=== PATIENT | female | born 1970 | race Caucasian/White ===

== ENCOUNTER 2020-04-08 17:38 | Inpatient (IN) | payer MEDICAID ==
[~2020-04-08] VITALS: Ht 162.6 cm; Wt 104.4 kg
--- NOTE | 2020-04-08 18:30 | NUR ---
Received report form OLIVIA Machuca at [place]. Took initial vitals and endorse care over to oncoming nurse Silvia.
[2020-04-08 19:10] VITALS: BP 149/87
--- NOTE | 2020-04-08 19:30 | NUR ---
Admitted a 49 years old female directly from [facility], for PUI and PNM. Patient AAOx4. Lithuanian speaking only. Denies any pain. On High flow O2 AT 40l, 80% FiO2, O2 sat at 100% art this time. No coughing noted. NSR on tele at 97/min. IV site on left wrist intact and patent. COVID isolation initiated. Routine admission care done. Plan of care initiated. Safety measure initiated and call castellano within reached. Continue to monitor.
[2020-04-08 20:00] VITALS: BP 156/88
[2020-04-08] MEDS ORDERED: HYDR-4384 PO (20:26)
[2020-04-08] MEDS ORDERED: MAG-83 PO (20:26)
[2020-04-08] MEDS ORDERED: ACET-2154 PO (20:26)
[2020-04-08] MEDS ORDERED: ZOLP5TAB8 PO (20:26)
[2020-04-08] MEDS ORDERED: PANT40TA2 PO (20:26)
[2020-04-08] MEDS ORDERED: DOXY100C2 PO (20:26)
[2020-04-08] MEDS ORDERED: DEXA10VI6 IVP (20:26)
[2020-04-08] MEDS ORDERED: ONDASETRON IVP (20:26)
[2020-04-08] MEDS ORDERED: HEPA50008 SQ (20:26)
[2020-04-08] MEDS ORDERED: MAG HYDROX/AL HYDROX/SIMETH 30 ML LIQUID UDC PO PRN (21:45)
[2020-04-08] MEDS ORDERED: ZOLPIDEM 5 MG TABLET PO PRN (21:45)
[2020-04-08] MEDS ORDERED: ACETAMINOPHEN 325 MG TABLET PO PRN (21:45)
[2020-04-08] MEDS ORDERED: HYDROCODONE/APAP 5-325MG TABLET PO PRN (21:45)
[2020-04-08] MEDS ORDERED: Z GUARD REMEDY PASTE 57 GM TUBE TOP PRN (21:45)
[2020-04-08] MEDS ORDERED: MAGNESIUM HYDROXIDE 30 ML LIQUID UDC PO PRN (21:45)
[2020-04-09 01:10] VITALS: BP 136/79
[2020-04-09 04:00] VITALS: BP 145/82
--- NOTE | 2020-04-09 07:03 | NUR ---
AAOx4. Denies any pain or SOB. On High flow O2 AT 40L, 80% FiO2, O2 sat at 97%. NSR on tele at 86/min. IV site on left wrist remains intact and patent. Needs attended to and met. COVID isolation maintained. Safety measure maintained and call castellano within reached.
--- NOTE | 2020-04-09 07:30 | NUR ---
received pt., A/Ox4, resting in bed. pt on high flow 40L, 80%. bed in low and locked position, fall precautions in place. will continue to monitor.
[2020-04-09 07:46] LABS: BASOPHILS % (AUTO) 0.1 % (0.0-2.0); HEMATOCRIT 29.3 % (31.2-41.9); HEMOGLOBIN 9.5 g/dL (10.9-14.3); LYMPHOCYTES # (AUTO) 0.4 K/uL (20.0-40.0); MEAN CORPUSCULAR HEMOGLOBIN 25.8 uug (24.7-32.8); MEAN CORPUSCULAR HGB CONC 32 g/dL (32.3-35.6); MONOCYTES # (AUTO) 0.5 K/uL (2.0-10.0); MONOCYTES % (AUTO) 6.5 % (0.0-11.0); NEUTROPHILS # (AUTO) 7.1 K/uL (1.8-8.9); NEUTROPHILS % (AUTO) 88.4 % (38.5-71.5); PLATELET COUNT (AUTO) 419 K/uL (179-408); RED BLOOD CELL COUNT(AUTO) 3.66 MIL/uL (3.63-4.92)
[2020-04-09 08:18] LABS: MAGNESIUM 3.1 mg/dL (1.8-2.4); PHOSPHOROUS 7.4 mg/dL (2.5-4.9); POTASSIUM 4.3 mmol/L (3.5-5.1)
[2020-04-09 08:46] LABS: CREATININE 7.5 mg/dL (0.6-1.3)
[2020-04-09] MEDS ORDERED: DOXYCYCLINE HYCLATE 100 MG TABLET PO SCH (09:00)
[2020-04-09] MEDS ORDERED: HEPARIN SODIUM,PORCINE 5,000 UNITS/ML VIAL SQ SCH ×2 (09:00→09:44)
--- NOTE | 2020-04-09 09:36 | NUR ---
critical labs values were reported by Karon from lab, BUN 117, Creatinine 7.5 at approx. 0846. made aware. awaiting orders. will continue to monitor.
[2020-04-09] MEDS: DEXAMETHASONE SOD PHOSPHATE 10 MG INJ IV SCH (09:45)
[2020-04-09] MEDS: PANTOPRAZOLE SODIUM 40 MG TABLET.DR PO SCH (09:45)
[2020-04-09] MEDS ORDERED: IV NS 1000 ML 1,000 ML IV ONE (10:45)
[2020-04-09] MEDS ORDERED: CEFTRIAXONE 1 G in IV DEXTROSE 5% 50 ML IV SCH (11:00)
[2020-04-09 11:58] VITALS: BP 134/86
[2020-04-09] MEDS: AZITHROMYCIN IV 500 MG in IV DEXTROSE 5% 250 ML IV SCH (12:27)
[2020-04-09] MEDS: CEFTRIAXONE 2 G in IV DEXTROSE 5% 100 ML IV SCH (13:19)
[2020-04-09 16:00] VITALS: BP 135/84
--- NOTE | 2020-04-09 19:30 | NUR ---
Received patient lying in bed. AAOx4. Denies any pain or SOB. On High flow O2 AT 40L, 80% FiO2, O2 sat at 97%. VS WNL. NSR on tele at 98/min. IV site on left wrist remains intact and patent. COVID isolation initiated. Safety measure initiated and call castellano within reached. Continue to monitor.
--- NOTE | 2020-04-09 19:36 | NUR ---
pt resting in bed, IV 22g on the left AC. pt on high flow oxygen. medications given as ordered. bed in low and locked position, fall precautions in place. will endorse to oncoming nurse.
[2020-04-09] MEDS: ENOXAPARIN SODIUM 100 MG/ML DISP.SYRIN SQ SCH (21:22)
[2020-04-09 21:44] VITALS: BP 126/83
[2020-04-10 00:21] VITALS: BP 135/76
[2020-04-10 04:24] VITALS: BP 134/74
[2020-04-10 05:24] VITALS: BP 134/74
--- NOTE | 2020-04-10 06:19 | NUR ---
No adverse event noted. Patient denies any SOB or pain. Still on high flow O2. No adverse effect noted from IV ABX. NSR on tele at 74/min. COVID isolation maintained. Needs attended to and met. Safety measure maintained and call castellano within reach.
[2020-04-10 07:27] LABS: HEMATOCRIT 28.1 % (31.2-41.9); HEMOGLOBIN 9.1 g/dL (10.9-14.3); LYMPHOCYTES # (AUTO) 0.4 K/uL (20.0-40.0); LYMPHOCYTES % (AUTO) 4.7 % (20.5-51.5); MEAN CORPUSCULAR HEMOGLOBIN 25.9 uug (24.7-32.8); MEAN CORPUSCULAR HGB CONC 32 g/dL (32.3-35.6); MEAN CORPUSCULAR VOLUME 80.2 fL (75.5-95.3); MONOCYTES # (AUTO) 0.6 K/uL (2.0-10.0); NEUTROPHILS # (AUTO) 7.6 K/uL (1.8-8.9); NEUTROPHILS % (AUTO) 88.3 % (38.5-71.5); PLATELET COUNT (AUTO) 454 K/uL (179-408); RED BLOOD CELL COUNT(AUTO) 3.51 MIL/uL (3.63-4.92); WHITE BLOOD COUNT (AUTO) 8.6 K/uL (3.8-11.8)
[2020-04-10 07:57] LABS: BILIRUBIN,TOTAL 0.2 mg/dL (0.2-1.0); CREATININE 6.7 mg/dL (0.6-1.3); MAGNESIUM 2.9 mg/dL (1.8-2.4); PHOSPHOROUS 7.1 mg/dL (2.5-4.9); POTASSIUM 4.4 mmol/L (3.5-5.1); TOTAL PROTEIN, SERUM 6.9 g/dL (6.4-8.2)
--- NOTE | 2020-04-10 08:00 | NUR ---
Received PT in bed, awake AO X 4. PT is cooperative and pleasant. Makes needs known to staff and interacts with staff when engaged to. SOB noted while moving in bed and going on the commode Nurse encourages PT to rest and practice deep breathing techniques. PT O2 saturation at 95% on high flow NC. PT returned to bed with safety measures provided, call light within reach, bed low and lock. Will continue to monitor.
[2020-04-10] MEDS ORDERED: DEXAMETHASONE SOD PHOSPHATE 10 MG INJ IV SCH (09:00)
[2020-04-10 09:36] LABS: ABG BASE EXCESS -14.5 mmol/L; ABG HCO3 11.5 mmol/L; ABG PCO2 27.6 mmHg (35.0-45.0); ABG PH 7.239 (7.350-7.450); ABG PO2 92.2 mmHg (75.0-100.0); ABG SITE RIGHT RADIAL; COHb 0.3 % (0.5-1.5); MetHb 0.2 % (0.0-1.5); O2Hb 95.6 % (94.0-97.0)
[2020-04-10] MEDS: PANTOPRAZOLE SODIUM 40 MG TABLET.DR PO SCH (10:25)
[2020-04-10] MEDS: DEXAMETHASONE SOD PHOSPHATE 10 MG INJ IV SCH (10:25)
[2020-04-10 11:55] VITALS: BP 124/64
[2020-04-10] MEDS: AZITHROMYCIN IV 500 MG in IV DEXTROSE 5% 250 ML IV SCH (12:28)
[2020-04-10] MEDS: CEFTRIAXONE 2 G in IV DEXTROSE 5% 100 ML IV SCH (13:54)
[2020-04-10 16:00] VITALS: BP 149/69
--- NOTE | 2020-04-10 18:39 | NUR ---
PT in bed, awake AO X 4 with safety measures. PT is in less distress and less SOB noted than previous. Vitals documented. PT still on high flow NC with O2 saturation of 95%. No complain of pain noted at this time. PT finished dinner and is resting in bed. Nurse taught coping skills and breathing techniques to relieve SOB. Safety measures provided, call light within reach, bed low and lock. Will endorse to overnight cashier nurse
--- NOTE | 2020-04-10 20:16 | NUR ---
Received patient in bed with High flow oxygen at 40LPM saturating at 99%.HOB elevated .Denies pain.No s/s of distress noted.Due meds given. Iv on left forearm patent and intact. Continue safety measures .Call light with in reach .will continue to monitor.
[2020-04-10 20:21] VITALS: BP 156/90
[2020-04-10] MEDS: ENOXAPARIN SODIUM 100 MG/ML DISP.SYRIN SQ SCH (22:01)
[2020-04-11 00:24] VITALS: BP 148/83
[2020-04-11 04:21] VITALS: BP 134/80
[2020-04-11 06:25] LABS: *BILIRUBIN,URIN NEGATIVE (NEGATIVE); *BLOOD, URINE 3+ (NEGATIVE); *CLARITY,URINE CLOUDY (CLEAR); *COLOR,URINE Brown (YELLOW); *KETONES,URINE NEGATIVE (NEGATIVE); *UROBILINOGEN,URINE 0.2 E.U./dl (NORMAL); LEUKOCYTE ESTERASE ,URINE NEGATIVE (NEGATIVE); NITRITE, URINE NEGATIVE (NEGATIVE); PH,URINE 5.5 (5.0-8.0); UGLUCOSE NEGATIVE (NEGATIVE)
[2020-04-11 06:54] LABS: BASOPHILS % (AUTO) 0.1 % (0.0-2.0); EOSINOPHILS % (AUTO) 0.2 % (0.0-7.0); HEMATOCRIT 30.3 % (31.2-41.9); HEMOGLOBIN 9.6 g/dL (10.9-14.3); LYMPHOCYTES # (AUTO) 0.4 K/uL (20.0-40.0); LYMPHOCYTES % (AUTO) 4.5 % (20.5-51.5); MEAN CORPUSCULAR HEMOGLOBIN 25.4 uug (24.7-32.8); MEAN CORPUSCULAR HGB CONC 32 g/dL (32.3-35.6); MEAN CORPUSCULAR VOLUME 80.6 fL (75.5-95.3); MONOCYTES # (AUTO) 0.6 K/uL (2.0-10.0); MONOCYTES % (AUTO) 6.2 % (0.0-11.0); NEUTROPHILS # (AUTO) 8.6 K/uL (1.8-8.9); PLATELET COUNT (AUTO) 469 K/uL (179-408); RED BLOOD CELL COUNT(AUTO) 3.76 MIL/uL (3.63-4.92); WHITE BLOOD COUNT (AUTO) 9.7 K/uL (3.8-11.8)
[2020-04-11 07:14] LABS: *CREATININE,URINE 70.4 mg/dL (30-125); *URINE TOTAL PROTEIN RANDOM 131.5 mg/dL (<150/24HR)
[2020-04-11 07:36] LABS: BILIRUBIN,TOTAL 0.3 mg/dL (0.2-1.0); CREATININE 5.9 mg/dL (0.6-1.3); MAGNESIUM 2.6 mg/dL (1.8-2.4); PHOSPHOROUS 6.6 mg/dL (2.5-4.9); POTASSIUM 4.2 mmol/L (3.5-5.1); TOTAL PROTEIN, SERUM 7.2 g/dL (6.4-8.2)
[2020-04-11 08:06] LABS: COMPLEMENT, C3 SERUM 140 mg/dL (82-167); COMPLEMENT, C4 SERUM 15 mg/dL (12-38)
[2020-04-11] MEDS: PANTOPRAZOLE SODIUM 40 MG TABLET.DR PO SCH (08:38)
[2020-04-11] MEDS: DEXAMETHASONE SOD PHOSPHATE 10 MG INJ IV SCH (08:39)
[2020-04-11 09:06] LABS: *ANTI-SCLERODERMA-70 AB <0.2 AI (0.0-0.9); *SJOGREN'S ANTI-SS-A <0.2 AI (0.0-0.9); *SJOGREN'S ANTI-SS-B <0.2 AI (0.0-0.9); *SMITH ANTIBODIES <0.2 AI (0.0-0.9)
[2020-04-11 11:08] VITALS: BP 149/83
[2020-04-11] MEDS: AZITHROMYCIN IV 500 MG in IV DEXTROSE 5% 250 ML IV SCH (12:20)
[2020-04-11] MEDS: CEFTRIAXONE 2 G in IV DEXTROSE 5% 100 ML IV SCH (13:46)
[2020-04-11 14:08] LABS: A/G RATIO 0.6 (0.7-1.7); ALBUMIN 2.5 g/dL (2.9-4.4); ALPHA-1-GLOBULIN 0.4 g/dL (0.0-0.4); ALPHA-2-GLOBULIN 1.2 g/dL (0.4-1.0); GAMMA GLOBULIN 1.4 g/dL (0.4-1.8); M-SPIKE Not Observed g/dL (Not Observed)
[2020-04-11 15:16] VITALS: BP 153/86
[2020-04-11 16:14] LABS: ANTI-DNA(DS) AB, QN 1 IU/mL (0-9)
[2020-04-11 17:19] LABS: BACTERIA,URINE NONE SEEN /HPF (NONE SEEN); RBC,URINE TNTC /HPF (0-3); WBC,URINE NONE SEEN /HPF (0-3)
[2020-04-11] MEDS: ENOXAPARIN SODIUM 100 MG/ML DISP.SYRIN SQ SCH (20:28)
[2020-04-11 20:57] VITALS: BP 155/83
[2020-04-12] MEDS: GUAIFENESIN/DEXTROMETHORPHAN 5 ML UDC PO PRN (03:21)
--- NOTE | 2020-04-12 04:15 | NUR ---
PATIENT COMPLAINS OF COUGHING THROUGHOUT THE NIGHT. GIVEN PRN ANTITUSSIVE. SLEPT INTERMITTENTLY THROUGHOUT THE NIGHT. SAFETY PRECAUTIONS IN PLACE.
[2020-04-12 05:15] VITALS: BP 161/86
--- NOTE | 2020-04-12 07:20 | NUR ---
Patient awake, alert and oriented, able to make needs known. On hi flow oxygen at 40LPM via NC saturating at 99%. Patient has right upper arm midline and L forearm IV access, both patent. Patient has labored breathing. No chest pain or IV site pain noted at this moment. RN instructed patient to use call light when in need of assistance. Patient verbalize understanding. Will continue to monitor.
[2020-04-12] MEDS: PANTOPRAZOLE SODIUM 40 MG TABLET.DR PO SCH (10:23)
[2020-04-12] MEDS: DEXAMETHASONE SOD PHOSPHATE 10 MG INJ IV SCH (10:23)
[2020-04-12 11:06] VITALS: BP 137/74
[2020-04-12] MEDS: AZITHROMYCIN IV 500 MG in IV DEXTROSE 5% 250 ML IV SCH (11:22)
[2020-04-12 11:23] LABS: BASOPHILS % (AUTO) 0.2 % (0.0-2.0); EOSINOPHILS % (AUTO) 0.2 % (0.0-7.0); HEMATOCRIT 27.5 % (31.2-41.9); HEMOGLOBIN 8.4 g/dL (10.9-14.3); LYMPHOCYTES # (AUTO) 0.3 K/uL (20.0-40.0); LYMPHOCYTES % (AUTO) 2.6 % (20.5-51.5); MEAN CORPUSCULAR HEMOGLOBIN 24.8 uug (24.7-32.8); MEAN CORPUSCULAR HGB CONC 31 g/dL (32.3-35.6); MONOCYTES # (AUTO) 0.4 K/uL (2.0-10.0); MONOCYTES % (AUTO) 3.4 % (0.0-11.0); NEUTROPHILS # (AUTO) 10.7 K/uL (1.8-8.9); NEUTROPHILS % (AUTO) 93.6 % (38.5-71.5); PLATELET COUNT (AUTO) 444 K/uL (179-408); WHITE BLOOD COUNT (AUTO) 11.4 K/uL (3.8-11.8)
[2020-04-12 11:33] LABS: CREATININE 4.7 mg/dL (0.6-1.3); POTASSIUM 4.1 mmol/L (3.5-5.1)
[2020-04-12] MEDS: CEFTRIAXONE 2 G in IV DEXTROSE 5% 100 ML IV SCH (12:56)
[2020-04-12 15:23] VITALS: BP 146/87
--- NOTE | 2020-04-12 19:00 | NUR ---
Patient lying in bed, both IV access patent. Still on hi flow oxygen at 40L via nasal cannula saturating 99%. No chest pain or IV site pain reported. Daughter called twice today, asking for some updates. All needs attended. Patient was seen by Dr. Villanueva today, saying she will order for an xray. Will endorse to night time nanny nurse.
[2020-04-12] MEDS: ENOXAPARIN SODIUM 100 MG/ML DISP.SYRIN SQ SCH (21:14)
[2020-04-12 21:25] VITALS: BP 146/78
--- NOTE | 2020-04-12 23:30 | NUR ---
Received pt resting in bed. AAO x4. On high flow 40L O2, labored breathing on exertion. No acute distress noted. Denies pain/ discomfort. Due med given as ordered. Safety measures maintained. Call light and personal items within reach. Will continue to monitor.
[2020-04-13 01:14] VITALS: BP 162/89
--- NOTE | 2020-04-13 01:38 | NUR ---
Pt's BP elevated 162/ 89, HR 99. Notified Dr. Tracy with order for Vasotec 2.5 mg IV Q6H PRN for SBP> 150. Will carry out order. Continue to monitor.
[2020-04-13] MEDS: ENALAPRILAT DIHYDRATE 1.25 MG/1 ML VIAL IV PRN (01:54)
[2020-04-13 06:46] VITALS: BP 157/89
[2020-04-13 08:19] LABS: BASOPHILS % (AUTO) 0.2 % (0.0-2.0); EOSINOPHILS % (AUTO) 0.2 % (0.0-7.0); HEMATOCRIT 27.4 % (31.2-41.9); HEMOGLOBIN 8.6 g/dL (10.9-14.3); LYMPHOCYTES # (AUTO) 0.5 K/uL (20.0-40.0); LYMPHOCYTES % (AUTO) 3.8 % (20.5-51.5); MEAN CORPUSCULAR HEMOGLOBIN 25.3 uug (24.7-32.8); MEAN CORPUSCULAR HGB CONC 31 g/dL (32.3-35.6); MEAN CORPUSCULAR VOLUME 80.6 fL (75.5-95.3); MONOCYTES # (AUTO) 0.3 K/uL (2.0-10.0); MONOCYTES % (AUTO) 2.8 % (0.0-11.0); PLATELET COUNT (AUTO) 459 K/uL (179-408); WHITE BLOOD COUNT (AUTO) 11.8 K/uL (3.8-11.8)
[2020-04-13] MEDS: DEXAMETHASONE SOD PHOSPHATE 10 MG INJ IV SCH (08:51)
[2020-04-13] MEDS: PANTOPRAZOLE SODIUM 40 MG TABLET.DR PO SCH (08:51)
[2020-04-13 09:51] LABS: ABG BASE EXCESS -13.4 mmol/L; ABG PCO2 26.5 mmHg (35.0-45.0); ABG PH 7.275 (7.350-7.450); ABG SITE LEFT BRACHIAL; ABG TOTAL HEMOGLOBIN 9.1 G/dL (12.0-16.0); COHb 0.6 % (0.5-1.5); MetHb 0.3 % (0.0-1.5)
--- NOTE | 2020-04-13 10:00 | NUR ---
Notified Dr calero about abg result drawn today. No new orders received.
[2020-04-13] MEDS ORDERED: ALBUTEROL SULFATE 8 GM HFA.AER.AD IH PRN (10:30)
[2020-04-13 10:54] LABS: CREATININE 4.7 mg/dL (0.6-1.3); MAGNESIUM 2.6 mg/dL (1.8-2.4); PHOSPHOROUS 5.7 mg/dL (2.5-4.9); POTASSIUM 3.9 mmol/L (3.5-5.1)
--- NOTE | 2020-04-13 11:00 | NUR ---
Instructed pt to conserve her energy and remain bed rest secondary to pt desaturated from hs when getting oob to the commode. Pt agreeable with plan of care.
[2020-04-13] MEDS: CEFTRIAXONE 2 G in IV DEXTROSE 5% 100 ML IV SCH (11:51)
[2020-04-13 12:00] VITALS: BP 144/84
[2020-04-13] MEDS: GUAIFENESIN/DEXTROMETHORPHAN 5 ML UDC PO PRN (12:15)
[2020-04-13 16:00] VITALS: BP 126/75
[2020-04-13 20:00] VITALS: BP 141/83
--- NOTE | 2020-04-13 21:40 | NUR ---
Patient on highflow 40LPM saturating at 97%.ALert and able to make needs known.Bengali speaking Denies pain. Denies SOB.Reinforced teaching to conserve her energy and to use call light for assistance. PAtient verbalized understanding.Due meds given.Will continue to monitor. Afebrile. VSS
[2020-04-13] MEDS: ENOXAPARIN SODIUM 100 MG/ML DISP.SYRIN SQ SCH (22:15)
[2020-04-14] VITALS: BP 139/78
[2020-04-14] MEDS: PANTOPRAZOLE SODIUM 40 MG TABLET.DR PO SCH (09:10)
[2020-04-14] MEDS: DEXAMETHASONE SOD PHOSPHATE 10 MG INJ IV SCH (09:10)
[2020-04-14] MEDS: ONDANSETRON 4 MG/2 ML VIAL IV PRN (10:14)
[2020-04-14 11:36] VITALS: BP 141/74
[2020-04-14] MEDS: CEFTRIAXONE 2 G in IV DEXTROSE 5% 100 ML IV SCH (12:08)
[2020-04-14] MEDS ORDERED: CEFEPIME HCL 1 G in IV DEXTROSE 5% 50 ML IV SCH (14:00)
[2020-04-14] MEDS: CEFEPIME HCL 1 G in IV DEXTROSE 5% 50 ML IV SCH ×2 (15:23→15:58)
[2020-04-14] MEDS ORDERED: GUAIFENESIN/DEXTROMETHORPHAN 5 ML UDC PO PRN (15:30)
[2020-04-14 15:43] VITALS: BP 149/81
--- NOTE | 2020-04-14 17:08 | NUR ---
Pt agreeable with getting the convalescent plasma even if convalescent plasma to be received is not from her family member. Family member JASON TOVAR ("RELATIVE") will donate Convalescent Plasma through [facility] specifically for the patient. Notified Ingris CARRASCO [employer] of change in plans from patient. Ordered CP per Ingris.
--- NOTE | 2020-04-14 17:40 | NUR ---
pt much more comfortable and breathing less labored after Albuterol inhaler and RT changed HI FLOW to 40 LITERs @ 100%FIO2. PT o2 sat 96%. Interventions effective.
[2020-04-14 20:43] VITALS: BP 148/79
[2020-04-14] MEDS: ENOXAPARIN SODIUM 100 MG/ML DISP.SYRIN SQ SCH (22:53)
[2020-04-15 00:45] VITALS: BP 137/82
[2020-04-15] MEDS: CEFEPIME HCL 1 G in IV DEXTROSE 5% 50 ML IV SCH (03:48)
[2020-04-15 04:00] VITALS: BP 148/85
[2020-04-15 07:46] LABS: BASOPHILS % (AUTO) 0.2 % (0.0-2.0); EOSINOPHILS % (AUTO) 0.1 % (0.0-7.0); HEMATOCRIT 26.5 % (31.2-41.9); HEMOGLOBIN 8.4 g/dL (10.9-14.3); LYMPHOCYTES # (AUTO) 0.4 K/uL (20.0-40.0); LYMPHOCYTES % (AUTO) 2.9 % (20.5-51.5); MEAN CORPUSCULAR HEMOGLOBIN 25.5 uug (24.7-32.8); MEAN CORPUSCULAR HGB CONC 32 g/dL (32.3-35.6); MEAN CORPUSCULAR VOLUME 80.7 fL (75.5-95.3); MONOCYTES # (AUTO) 0.5 K/uL (2.0-10.0); MONOCYTES % (AUTO) 3.6 % (0.0-11.0); NEUTROPHILS # (AUTO) 11.9 K/uL (1.8-8.9); NEUTROPHILS % (AUTO) 93.2 % (38.5-71.5); PLATELET COUNT (AUTO) 490 K/uL (179-408); RED BLOOD CELL COUNT(AUTO) 3.29 MIL/uL (3.63-4.92); WHITE BLOOD COUNT (AUTO) 12.8 K/uL (3.8-11.8)
[2020-04-15 08:00] LABS: CREATININE 4.7 mg/dL (0.6-1.3); MAGNESIUM 2.3 mg/dL (1.8-2.4); PHOSPHOROUS 5.7 mg/dL (2.5-4.9); POTASSIUM 4.6 mmol/L (3.5-5.1)
[2020-04-15] MEDS: PANTOPRAZOLE SODIUM 40 MG TABLET.DR PO SCH (08:55)
[2020-04-15] MEDS: DEXAMETHASONE SOD PHOSPHATE 10 MG INJ IV SCH (08:55)
--- NOTE | 2020-04-15 09:30 | NUR ---
Lena CARRASCO notified that patient changed her mind and wants the convalescent plasma, given IND form for lab to be turned in.
[2020-04-15 11:40] VITALS: BP 154/87
[2020-04-15] MEDS: CEFEPIME HCL 2 G in IV DEXTROSE 5% 100 ML IV SCH (15:07)
[2020-04-15 16:00] VITALS: BP 148/80
--- NOTE | 2020-04-15 18:25 | NUR ---
Patient started on convalescent plasma via downtime procedure. Spoke with Arnaud about product number not scanning. Per Arnaud, use downtime procedure (blood transfusion form/paper)
--- NOTE | 2020-04-15 19:45 | NUR ---
convalescent therapy complete. no reactions. v/s stable. no s/s of distress noted. will continue to monitor patient.
[2020-04-15 20:00] VITALS: BP 152/80
[2020-04-15] MEDS: ENOXAPARIN SODIUM 100 MG/ML DISP.SYRIN SQ SCH (21:30)
[2020-04-16] VITALS: BP 154/68
[2020-04-16 04:00] VITALS: BP 147/80
[2020-04-16 07:02] LABS: BASOPHILS % (AUTO) 0.1 % (0.0-2.0); EOSINOPHILS % (AUTO) 0.2 % (0.0-7.0); HEMOGLOBIN 8.3 g/dL (10.9-14.3); LYMPHOCYTES # (AUTO) 0.4 K/uL (20.0-40.0); LYMPHOCYTES % (AUTO) 3.9 % (20.5-51.5); MEAN CORPUSCULAR HEMOGLOBIN 26.2 uug (24.7-32.8); MEAN CORPUSCULAR HGB CONC 32 g/dL (32.3-35.6); MEAN CORPUSCULAR VOLUME 81.6 fL (75.5-95.3); MONOCYTES # (AUTO) 0.6 K/uL (2.0-10.0); MONOCYTES % (AUTO) 5.5 % (0.0-11.0); NEUTROPHILS # (AUTO) 9.7 K/uL (1.8-8.9); NEUTROPHILS % (AUTO) 90.3 % (38.5-71.5); PLATELET COUNT (AUTO) 463 K/uL (179-408); RED BLOOD CELL COUNT(AUTO) 3.18 MIL/uL (3.63-4.92); WHITE BLOOD COUNT (AUTO) 10.7 K/uL (3.8-11.8)
[2020-04-16 07:28] LABS: CREATININE 4.6 mg/dL (0.6-1.3); MAGNESIUM 2.5 mg/dL (1.8-2.4); PHOSPHOROUS 6.6 mg/dL (2.5-4.9); POTASSIUM 5.2 mmol/L (3.5-5.1)
--- NOTE | 2020-04-16 08:00 | NUR ---
Awake and responsive. Mcneal catheter intact and patent draining yellow urine. No hematuria noted. Remains on NRB mask O2 saturation at 97%. Denies pain. Will continue to monitor.
[2020-04-16] MEDS: PANTOPRAZOLE SODIUM 40 MG TABLET.DR PO SCH (08:32)
[2020-04-16] MEDS: DEXAMETHASONE SOD PHOSPHATE 10 MG INJ IV SCH (08:33)
--- NOTE | 2020-04-16 09:30 | NUR ---
Awake and responsive. Noted with mendoza catheter, intact and patent draining yellow urine. No hematuria or sediments. No complaints of pain. Will continue to monitor.
--- NOTE | 2020-04-16 11:09 | NUR ---
NOTED WITH FRESH RED BLOOD IN GRANT CATHETER. DR. BATES HERE TO SEE THE PATIENT AND MADE AWARE WITH ORDER TO STOP LOVENOX. WILL CONTINUE TO MONITOR. Addendum: 04/16/20 at 1521 by DANIEL LOPEZ RN charted on wrong patient
[2020-04-16 12:00] VITALS: BP 145/80
[2020-04-16] MEDS ORDERED: SODIUM POLYSTYRENE SULFONATE 15 G/60 ML LIQUID UDC PO ONE (13:15)
[2020-04-16] MEDS: CEFEPIME HCL 2 G in IV DEXTROSE 5% 100 ML IV SCH (15:32)
[2020-04-16 16:00] VITALS: BP 155/84
[2020-04-16] MEDS: ONDANSETRON 4 MG/2 ML VIAL IV PRN (17:28)
--- NOTE | 2020-04-16 19:12 | NUR ---
Alert and responsive, eating in bed. Reports no more nausea or vomiting after prn Zofran was given. Spoke with dtr about her mother's condition this morning. She was appreciative about the updates.
[2020-04-16 20:12] VITALS: BP 144/77
[2020-04-16] MEDS: ENOXAPARIN SODIUM 100 MG/ML DISP.SYRIN SQ SCH (21:05)
--- NOTE | 2020-04-17 | NUR ---
Patient is alert and verbally responsive. Can make needs known. Patient's right upper arm midline noted infiltrated. Inserted 22G peripheral line at left forearm x 2 attempts. Removed right upper arm midline. Patient tolerated procedures well. Patient received medications as ordered. Patient continues to be on high flow oxygen via nonrebreather mask/ nasal cannula. Patient with mendoza catheter intact and draining usha urine. Provided patient warm blanket as requested. Will continue to attend to patient's needs.
[2020-04-17 04:18] VITALS: BP 153/74
[2020-04-17 08:02] LABS: BASOPHILS % (AUTO) 0.1 % (0.0-2.0); EOSINOPHILS # (AUTO) 0.1 K/uL (0.0-0.7); HEMATOCRIT 26.7 % (31.2-41.9); HEMOGLOBIN 8.2 g/dL (10.9-14.3); LYMPHOCYTES # (AUTO) 0.6 K/uL (20.0-40.0); LYMPHOCYTES % (AUTO) 4.9 % (20.5-51.5); MEAN CORPUSCULAR HEMOGLOBIN 25.1 uug (24.7-32.8); MEAN CORPUSCULAR HGB CONC 31 g/dL (32.3-35.6); MEAN CORPUSCULAR VOLUME 81.5 fL (75.5-95.3); MONOCYTES # (AUTO) 0.6 K/uL (2.0-10.0); MONOCYTES % (AUTO) 4.7 % (0.0-11.0); NEUTROPHILS # (AUTO) 10.9 K/uL (1.8-8.9); NEUTROPHILS % (AUTO) 89.3 % (38.5-71.5); PLATELET COUNT (AUTO) 403 K/uL (179-408); RED BLOOD CELL COUNT(AUTO) 3.28 MIL/uL (3.63-4.92); WHITE BLOOD COUNT (AUTO) 12.2 K/uL (3.8-11.8)
[2020-04-17 08:20] LABS: CREATININE 4.7 mg/dL (0.6-1.3); POTASSIUM 5.1 mmol/L (3.5-5.1)
[2020-04-17] MEDS: DEXAMETHASONE SOD PHOSPHATE 10 MG INJ IV SCH (08:29)
[2020-04-17] MEDS: PANTOPRAZOLE SODIUM 40 MG TABLET.DR PO SCH (08:29)
--- NOTE | 2020-04-17 11:30 | NUR ---
Patient seen by Willie Sarmiento [employer], update given and [employer] made aware of BUN result of 93 with no new order at this time.
[2020-04-17 11:58] VITALS: BP 154/77
[2020-04-17 13:06] LABS: CRYPTOCOCCUS AB, SERUM Negative (Negative)
[2020-04-17 16:00] VITALS: BP 147/88
--- NOTE | 2020-04-17 18:44 | NUR ---
Patient remains alert, oriented x 3, on high flow nasal cannula 40L and non-rebreather mask 15LPM with O2 sat of 99%. She denies any pain or discomfort at this time. Left forearm IV line in place and patent, no signs of infection. Mcneal catheter in place, and patent, draining clear yellow urine. Assisted with her needs promptly. Patient seen by Dr. Li, update given to MD with no new order. Call light and frequently used items placed within patient's reach. Will continue to monitor and will endorse accordingly.
[2020-04-17 19:06] LABS: COCCIDIOIDES CF SERUM Negative (Neg:<1:2)
[2020-04-17] MEDS: ENOXAPARIN SODIUM 100 MG/ML DISP.SYRIN SQ SCH (20:04)
[2020-04-17 20:21] VITALS: BP 114/63
--- NOTE | 2020-04-17 21:38 | NUR ---
Received pt resting in bed. AAO x3, Namibian speaking, able to make needs known. On high flow 40L NC and 15L NRB, no acute distress noted. Denies pain/ discomfort. Due med given as ordered. Mcneal catheter draining well with yellow colored urine. Safety measures maintained. Call light and personal items within reach. Will continue to monitor.
[2020-04-18 00:24] VITALS: BP 153/74
[2020-04-18] MEDS: ENALAPRILAT DIHYDRATE 1.25 MG/1 ML VIAL IV PRN (01:29)
[2020-04-18 04:21] VITALS: BP 136/69
[2020-04-18] MEDS: PANTOPRAZOLE SODIUM 40 MG TABLET.DR PO SCH (08:44)
[2020-04-18] MEDS: DEXAMETHASONE SOD PHOSPHATE 10 MG INJ IV SCH (08:44)
[2020-04-18] MEDS ORDERED: ENSURE ENLIVE (VAN) 240 ML LIQUID PO SCH (09:00)
[2020-04-18] MEDS ORDERED: AMLODIPINE 5 MG TABLET PO SCH (09:00)
--- NOTE | 2020-04-18 09:00 | NUR ---
Patient is alert, oriented x 3, afebrile, not in acute distress, on high flow nasal cannula 40L and non-rebreather 15L, O2 sat 98%. No complain of pain or discomfort. Compliant with medications and tolerated well. Mcneal catheter remains intact and patent draining yellow urine. IV line on left forearm in place and patent. Patient seen by Willie Sarmiento NP, given update, no order at this time. Call light and frequently used items placed within patient's reach. Will continue to monitor.
[2020-04-18 09:34] VITALS: BP 139/76
[2020-04-18] MEDS ORDERED: EPINEPHRINE 1:10,000 1 MG/10 ML DISP.SYRIN ONE (12:15)
--- NOTE | 2020-04-18 14:32 | NUR ---
MARGIE called and spoke with patient's son Dayne, . MARGIE explored family's needs, as patient earlier today. Dayne asked for information on homes and mortuaries. MARGIE emailed Dayne this list at [email or web address]. MARGIE also allowed Dayne to express thoughts and feelings, and provided support. MARGIE informed Dayne that MARGIE would continue to be available to the family, for additional resource and support. Dayne expressed understanding and thanked this SW.
== END 2020-04-18 12:00 | disposition expired | DRG 720 ==
LOC: MEDSURG3 18:59 → EDBD 18:59 → TELE3 19:05
PROVIDERS: ADMIT Nurse Practitioner Acute Care; ATTEND Nurse Practitioner Acute Care
PROC: 05HD33Z Insertion of Infusion Device into Right Cephalic Vein, Percutaneous Approach (ICD-10-PCS; principal; 2020-04-11)
PROC: XW13325 Transfusion of Convalescent Plasma (Nonautologous) into Peripheral Vein, Percutaneous Approach, New Technology Group 5 (ICD-10-PCS; 2020-04-15)
PROC: 0BH18EZ Insertion of Endotracheal Airway into Trachea, Via Natural or Artificial Opening Endoscopic (ICD-10-PCS; 2020-04-18)
PROC: 5A12012 Performance of Cardiac Output, Single, Manual (ICD-10-PCS; 2020-04-18)
DX: A41.89 Other specified sepsis (principal); U07.1 COVID-19; J12.82 Pneumonia due to coronavirus disease 2019; J96.01 Acute respiratory failure with hypoxia; N17.0 Acute kidney failure with tubular necrosis; E43 Unspecified severe protein-calorie malnutrition; I13.10 Hypertensive heart and chronic kidney disease without heart failure, with stage 1 through stage 4 chronic kidney disease, or unspecified chronic kidney disease; N18.9 Chronic kidney disease, unspecified; R73.03 Prediabetes; E87.2 Acidosis; Z68.39 Body mass index [BMI] 39.0-39.9, adult; E88.09 Other disorders of plasma-protein metabolism, not elsewhere classified; D64.9 Anemia, unspecified; N05.9 Unspecified nephritic syndrome with unspecified morphologic changes; J15.9 Unspecified bacterial pneumonia; E66.01 Morbid (severe) obesity due to excess calories
CPT/HCPCS: 36415; 36600; 71045; 71046; 76770; 83605; 83615; 83735; 83970; 84100; 84155; 84156; 84165; 84300; 85025; 85651; 86038; 86140; 86160; 86480; 86803; 86850; 86900; 86901; 87040; 87086; 87328; 87536; A4217; G0378; J0171; J0456; J0692; J0696; J1100; J1644; J1650; J2405; J3490; J3535; J7030; J7040; J7050; J7060; P9016-BL; P9017-BL; U0003